=== PATIENT | female | born 1980 | race Caucasian/White ===

== ENCOUNTER 2020-02-09 08:33 | Outpatient (CLI) | payer OTHER, SELFPAY ==
--- NOTE | ~2020-02-09 | MM_ITS ---
EXAMINATION: MM screening germaine BI w lala HISTORY: Screening mammogram TECHNIQUE: Craniocaudal and mediolateral oblique 3-D tomosynthesis images were obtained and synthetic 2-D images were generated. CAD analysis was submitted and interpreted. COMPARISON: 01/19/2019, 12/29/2017 bilateral digital screening mammogram examinations o BREAST PARENCHYMAL COMPOSITION: There are scattered areas of fibroglandular density. FINDINGS: There is no evidence of suspicious mass, calcification, or architectural distortion to sugg est malignancy in either breast. There has been no suspicious interval change. IMPRESSION: 1. No mammographic evidence of malignancy. 2. Recommend routine screening mammography in one year. BI-RADS Category 1: Negative Reviewed, dictated and finalized at location A. LOGY TECHNICIAN
== END 2020-02-09 08:34 | disposition home or self-care (01) ==
LOC: ANHIMG 08:35
PROVIDERS: PCP Nurse Practitioner Family; Visit Provider Nurse Practitioner Family
DX: Z12.31 Encounter for screening mammogram for malignant neoplasm of breast (principal)
CPT/HCPCS: 77063; 77067

== ENCOUNTER 2020-12-25 18:14 | Emergency (ER) | payer OTHER, SELFPAY ==
--- NOTE | ~2020-12-25 | XR_ITS ---
EXAMINATION: XR ankle RT min 3V DATE: 12/25/2020 18:34 INDICATION: Right ankle injury and pain. TECHNIQUE: 4 views of right ankle were obtained. COMPARISON: None. FINDINGS: Bone alignment is normal. No fracture. Joint spaces are well maintained. IMPRESSION: 1. No fracture. Reviewed, dictated and finalized at location A. IMPRESSION: 1. No fracture.
[2020-12-25 18:38] VITALS: BP 123/83; PULSE 70; RESP 18; TEMP 37.3; O2SAT 100
--- NOTE | 2020-12-25 18:55 | ED.LOWEXIN ---
HPI - Extremity Injury (Lower) General Chief Complaint: Extremity Injury, Lower Stated Complaint: Rt ankle pain Time Seen by Provider: 12/25/20 18:46 Source: patient and RN notes reviewed Mode of arrival: ambulatory Limitations: no limitations History of Present Illness HPI Narrative: Patient presents today complaining of pain and swelling to the right ankle after she fell and twisted her ankle 1 week ago. She does report some numbness to the lateral malleolus area since the injury. She currently rates her pain 4/10 and has been elevating the ankle and applying ice once. She has tried no medication for symptoms prior to arrival. She has been continuing to work and going to the gym, and states that she knows that when she continues to work it does make the swelling and pain worse. MD complaint: ankle injury Related Data Home Medications Medication Instructions Recorded Confirmed hydroxyzine HCl 25 mg PO DAILY 12/25/20 12/25/20 sertraline 100 mg PO DAILY 12/25/20 12/25/20 zolpidem 10 mg PO HS 12/25/20 12/25/20 Allergies Allergy/AdvReac Type Severity Reaction Status Date / Time oxycodone AdvReac Severe vomiting Verified 12/25/20 18:40 Review of Systems Review of Systems: CONSTITUTIONAL: Denies body aches, fever, chills, or sweats. EYES: Denies visual changes, redness, or discharge. ENT: Denies rhinorrhea, congestion, sore throat, or otalgia. CARDIOVASCULAR: Denies chest pain, palpitations, or edema. RESPIRATORY: Denies cough or dyspnea. GASTROINTESTINAL: Denies abdominal pain, nausea, vomiting, or diarrhea. GENITOURINARY: Denies dysuria or hematuria. SKIN: Denies rash, itching, or wounds. MUSCULOSKELETAL: Denies back pain, or myalgia.+ Right ankle injury NEUROLOGIC: Denies headache, tingling, or weakness.+ Numbness to the right lateral ankle PSYCH: Denies depression or anxiety. PMFSH Comments At time of signature, I have reviewed and agree with nursing past medical, surgical, social and family history unless otherwise noted. Please see nursing chart for further information. There is no relevant family history pertinent to the presenting complaint Exam Narrative: GENERAL: Well-appearing, well-nourished, and in no acute distress. HEAD: Normocephalic, atraumatic. EYES: EOMI. No redness or drainage. Conjunctivae normal. ENT: Mucous membranes pink and moist. NECK: Normal AROM. CHEST: No respiratory distress. EXTREMITIES: Right ankle: Mild swelling to the lateral malleolus, extending slightly distally with some healing ecchymosis. Tenderness to these areas. No tenderness medially or posteriorly. Distal sensation intact. Capillary refill normal. Pedal pulse normal. Patient does have sensation to the lateral malleolus. No pain with PROM of the ankle. SKIN: Warm, dry, no rash. Capillary refill normal. Normal skin turgor. NEURO: No focal deficits. Alert and oriented x3. Gait steady. PSYCH: Normal affect. No signs of depression or anxiety. Course Vital Signs Vital signs: Vital Signs Temperature 99.1 F 12/25/20 18:38 Pulse Rate 70 12/25/20 18:38 Respiratory Rate 18 12/25/20 18:38 Blood Pressure 123/83 12/25/20 18:38 Pulse Oximetry 100 12/25/20 18:38 Temperature 99.1 F 12/25/20 18:38 Pulse Rate 70 12/25/20 18:38 Respiratory Rate 18 12/25/20 18:38 Blood Pressure 123/83 12/25/20 18:38 Pulse Oximetry 100 12/25/20 18:38 Reviewed. Pt has been instructed to follow up with her PCP regarding her elevated blood pressure today. MDM - Extremity Injury (Lower) Differential Diagnosis Differential diagnosis: Likely ankle sprain and strain, ankle fracture and other (Contusion, foot fracture, foot sprain) Imaging Data Radiologist's impression: ITS Impressions Ankle X-Ray 12/25/20 18:36 IMPRESSION: 1. No fracture. Critical Care Time Critical Care Time Critical Care Time: No Discharge Plan Discharge Clinical Impression: Right ankle sprain Qualifiers: E
== END 2020-12-25 19:03 | disposition home or self-care (01) ==
PROVIDERS: Emergency Provider Nurse Practitioner; PCP Nurse Practitioner Family
DX: S93.401A Sprain of unspecified ligament of right ankle, initial encounter (principal); X50.9XXA Other and unspecified overexertion or strenuous movements or postures, initial encounter; F41.9 Anxiety disorder, unspecified
CPT/HCPCS: 73610; 99213; G0463

== ENCOUNTER 2021-04-08 15:29 | Outpatient (CLI) | payer OTHER, SELFPAY ==
--- NOTE | ~2021-04-08 | MM_ITS ---
EXAMINATION: MM screening germaine BI w lala HISTORY: Screening mammogram, family history of breast cancer in her mother. TECHNIQUE: Craniocaudal and mediolateral oblique 3-D tomosynthesis images were obtained and synthetic 2-D images were generated. CAD analysis was submitted and interpreted. COMPARISON: 02/09/2020, 01/19/2019, 12/29/2017 BREAST PARENCHYMAL COMPOSITION: There are scattered areas of fibroglandular density. FINDINGS: There is no evidence of suspicious mass, calcification, or architectural distortion to sugg est malignancy in either breast. There has been no suspicious interval change. IMPRESSION: 1. No mammographic evidence of malignancy. 2. Recommend routine screening mammography in one year. BI-RADS Category 1: Negative Reviewed, dictated and finalized at location A. ENDER
== END 2021-04-08 15:30 | disposition home or self-care (01) ==
PROVIDERS: PCP Nurse Practitioner Family; Visit Provider Obstetrics & Gynecology Gynecology
DX: Z12.31 Encounter for screening mammogram for malignant neoplasm of breast (principal)
CPT/HCPCS: 77063; 77067

== ENCOUNTER 2021-11-19 19:09 | Emergency (ER) | payer OTHER, SELFPAY ==
[2021-11-19 20:00] VITALS: BP 117/82; PULSE 73; RESP 18; TEMP 36.9; O2SAT 98
--- NOTE | 2021-11-19 20:11 | ED.URI ---
HPI - URI/Sore Throat General Chief Complaint: Upper Respiratory Infection Stated Complaint: sorethroat Time Seen by Provider: 11/19/21 20:11 Source: patient and RN notes reviewed Mode of arrival: ambulatory Limitations: no limitations History of Present Illness HPI Narrative: 41-year-old female presented for complaint of sore throat since yesterday. Endorses yesterday also having headache, fevers and chills, and cough. Endorses waking today with a hoarse voice. She endorses exposure to sick child but unsure what they had. She is taking [place] and NyQuil for symptoms. She tested negative for COVID at home today. Denies shortness of breath, wheezing, vomiting. MD elicited complaint: cough Related Data Home Medications Medication Instructions Recorded Confirmed hydroxyzine HCl 25 mg tablet 25 mg TID 11/19/21 11/19/21 sertraline 100 mg tablet 100 mg DAILY 11/19/21 11/19/21 zolpidem 10 mg tablet 10 mg HS 11/19/21 11/19/21 Allergies Allergy/AdvReac Type Severity Reaction Status Date / Time oxycodone AdvReac Severe vomiting Verified 11/19/21 20:22 Review of Systems Review of Systems: EYES: Denies visual changes, redness, or discharge ENT: Reports rhinorrhea, congestion, sore throat CARDIOVASCULAR: Denies chest pain, palpitations, edema RESPIRATORY: Reports cough, post nasal drainage. Denies dyspnea GASTROINTESTINAL: Denies abdominal pain, nausea, vomiting, diarrhea SKIN: Denies rash or itching MUSCULOSKELETAL: denies myalgia NEUROLOGIC: Denies headache Exam Narrative: GENERAL: Ill-appearing, nontoxic EYES: conjunctivae clear ENT: Mucous membranes moist. TMs pearly [place] with dull light reflex bilaterally; no tragal tenderness. Oropharynx erythematous without lesions or exudate, voice is hoarse; no drooling, no trismus, uvula midline. No tripod positioning, muffled voice, soft palate or pharyngeal wall bulging CHEST: Clear to auscultation, breath sounds equal. HEART: Regular rate and rhythm. SKIN: Warm, dry, no rash. NEURO: Alert and oriented x3. PSYCH: Normal mood and affect Course Course Emergency Course: Patient is aware of diagnosis, understands and agrees to treatment plan. Anticipatory guidance given. Patient agrees to follow-up as directed and is aware of reasons to seek care at the emergency department. Portions of this record may have been created with voice recognition software Level of Care: Express Care Visit Vital Signs Vital signs: Vital Signs Temperature 98.5 F 11/19/21 20:00 Pulse Rate 73 11/19/21 20:00 Respiratory Rate 18 11/19/21 20:00 Blood Pressure 117/82 11/19/21 20:00 Pulse Oximetry 98 11/19/21 20:00 Oxygen Delivery Room Air 11/19/21 20:00 Temperature 98.5 F 11/19/21 20:00 Pulse Rate 73 11/19/21 20:00 Respiratory Rate 18 11/19/21 20:00 Blood Pressure 117/82 11/19/21 20:00 Pulse Oximetry 98 11/19/21 20:00 Oxygen Delivery Room Air 11/19/21 20:00 reviewed MDM - URI/Sore Throat MDM Narrative Medical decision making narrative: Negative strep reviewed with patient. Advised supportive measures and signs/symptoms to go to the ER. Pt is appropriate for outpt treatment and f/u. Differential Diagnosis Differential diagnosis: Likely upper respiratory infection, sinusitis and viral infection Lab Data Labs: Strep Screen Presumptive Negative *(Reference Range: Negative)* Discharge Plan Discharge Clinical Impression: Upper respiratory infection Patient Disposition: Home, Self-Care Condition: Stable Instructions: Pharyngitis (ED) Additional Instructions: Rapid strep swab was negative today You will be notified in a few days if the culture comes back positive for strep, and appropriate antibiotics will be called in at that time. if symptoms are due to a viral illness, it is not treated with antibiotics. Viral symptoms can be present for up to 10-14 days. Cong
== END 2021-11-19 20:41 | disposition home or self-care (01) ==
PROVIDERS: Emergency Provider Nurse Practitioner Family; PCP Nurse Practitioner Family
DX: J06.9 Acute upper respiratory infection, unspecified (principal)
CPT/HCPCS: 87081; 87880; 99213; G0463

== ENCOUNTER 2022-01-26 12:41 | Emergency (ER) | payer OTHER, SELFPAY ==
--- NOTE | ~2022-01-26 | XR_ITS ---
EXAMINATION: XR chest 2V DATE: 01/26/2022 13:19 INDICATION: Productive cough. Congestion. TECHNIQUE: Frontal and lateral views of the chest were obtained. COMPARISON: None. 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 No pleural ef fusion or pneumothorax. The heart size is normal. IMPRESSION: 1. No acute cardiopulmonary disease. Reviewed, dictated and finalized at location A. ATTENDANT
--- NOTE | 2022-01-26 12:54 | ED.URI ---
HPI - URI/Sore Throat General Chief Complaint: Upper Respiratory Infection Stated Complaint: fever,cough Time Seen by Provider: 01/26/22 12:54 Source: patient Mode of arrival: ambulatory Limitations: no limitations History of Present Illness HPI Narrative: William is a 41-year-old female patient presenting to clinic today with complaints of fever, cough, shortness of breath, chills x2 weeks. She reports she went to [place] [facility] 8 days ago and received prednisone, Tamiflu, albuterol inhaler. States that her had flu a so they went ahead and gave her a prescription for Tamiflu and she states that this did not help her symptoms. The albuterol is helping some of the shortness of breath however she feels as though she has pneumonia. She reports that she is coughing up some green phlegm. MD elicited complaint: fever, cough and nasal congestion Related Data Home Medications Medication Instructions Recorded Confirmed hydroxyzine HCl 25 mg tablet 25 mg TID 11/19/21 01/26/22 sertraline 100 mg tablet 100 mg DAILY 11/19/21 01/26/22 zolpidem 10 mg tablet 10 mg HS 11/19/21 01/26/22 Allergies Allergy/AdvReac Type Severity Reaction Status Date / Time oxycodone AdvReac Severe vomiting Verified 01/26/22 13:09 Review of Systems Review of Systems: Pertinent positives per HPI. Patient denies any fever, chills, rash, headache, visual changes, dizziness, chest pain, palpitations, nausea, vomiting, diarrhea, constipation, abdominal pain, or any urinary issues. PMFSH Comments At the time of my signature, I reviewed and agree with the nursing past medical, surgical, social, and family history. There is no relevant family history pertinent to the patient complaint. Exam Narrative: General: Well-developed, well nourished, in no apparent distress Head: Normocephalic, atraumatic Eyes: Pupils equally round and reactive to light bilaterally, EOM intact, sclera and conjunctive clear, no discharge, lids normal Ears: TMs intact and dull, ear canals clear, no drainage, grossly hearing normal. Nose: Nares patent, green nasal discharge, severe inflammation, maxillary and frontal sinus tenderness. Mouth: Oral pharynx without lesions or masses, good dentition, MMM. Postnasal drip Neck: Supple, trachea midline, no enlargement of anterior or posterior cervical nodes, no thyroid masses or goiter palpable. Cardio: Regular rate and rhythm, s1 and s2 normal, no murmur appreciated. Resp: Clear to auscultation bilaterally, no rhonchi, rales, wheezing or rubs Course Course Emergency Course: Portions of this record may have been created with voice recognition software. Level of Care: Express Care Visit Vital Signs Vital signs: Vital Signs Temperature 36.6 C 01/26/22 13:00 Pulse Rate 83 01/26/22 13:00 Respiratory Rate 18 01/26/22 13:00 Blood Pressure 133/99 H 01/26/22 13:00 Pulse Oximetry 98 01/26/22 13:00 Oxygen Delivery Room Air 01/26/22 13:00 Temperature 36.6 C 01/26/22 13:00 Pulse Rate 83 01/26/22 13:00 Respiratory Rate 18 01/26/22 13:00 Blood Pressure 133/99 H 01/26/22 13:00 Pulse Oximetry 98 01/26/22 13:00 Oxygen Delivery Room Air 01/26/22 13:00 Vital signs reviewed MDM - URI/Sore Throat MDM Narrative Medical decision making narrative: At the time of visit patient is resting comfortably on exam table. Chest x-ray was performed and patient was negative for any sign of pneumonia. I suspect patient has acute bacterial rhinosinusitis which with a prescription of Augmentin and prednisone. Supportive measures were discussed with the patient and she voiced understanding of discharge instructions and agrees to treatment plan Differential Diagnosis Differential diagnosis: Likely upper respiratory infection, otitis media, sinusitis, viral infection, bronchitis, influenza, pharyngitis and other (COVID) Discharge Plan Discharge Clinical Impression: Acute bacterial rhinosinusitis Patient
[2022-01-26 13:00] VITALS: BP 133/99; PULSE 83; RESP 18; TEMP 36.6; O2SAT 98
== END 2022-01-26 13:27 | disposition home or self-care (01) ==
PROVIDERS: Emergency Provider Nurse Practitioner Family; PCP Nurse Practitioner Family
DX: J01.90 Acute sinusitis, unspecified (principal); F41.9 Anxiety disorder, unspecified
CPT/HCPCS: 71046; 99213; G0463

== ENCOUNTER 2022-05-25 11:53 | Emergency (ER) | payer OTHER, SELFPAY ==
[2022-05-25 12:07] VITALS: BP 125/82; PULSE 65; RESP 16; TEMP 36.5; O2SAT 98
--- NOTE | 2022-05-25 12:46 | ED.URI ---
HPI - URI/Sore Throat General Chief Complaint: Upper Respiratory Infection Stated Complaint: sorethroat,cough Source: patient Mode of arrival: ambulatory Limitations: no limitations History of Present Illness HPI Narrative: 41-year-old female presents to [facility] complains of body aches, chills, cough, sore throat, nasal congestion and sinus pressure for the past 3-4 days. Patient reports that her daughter recently had similar symptoms. Patient has been taking Claritin, Flonase, DayQuil and ibuprofen with minimal relief. Patient denies recent travel. Patient has shortness of breath, wheezing, nausea, vomiting or diarrhea. MD elicited complaint: sore throat, rhinorrhea, nasal congestion and sinus pain Onset (ago): day(s) (3) Able to tolerate fluids by mouth: Yes Context: sick contacts Treatments prior to arrival: acetaminophen, ibuprofen and cold medicine Related Data Home Medications Medication Instructions Recorded Confirmed hydroxyzine HCl 25 mg tablet 25 mg TID 11/19/21 05/25/22 sertraline 100 mg tablet 100 mg DAILY 11/19/21 05/25/22 zolpidem 10 mg tablet 10 mg HS 11/19/21 05/25/22 Allergies Allergy/AdvReac Type Severity Reaction Status Date / Time oxycodone AdvReac Severe vomiting Verified 05/25/22 12:08 Review of Systems Constitutional: Constitutional: Reports chills, Reports fatigue, Denies fever(s) and Denies weakness ENT: Denies vertigo, Denies dizziness, Reports nasal congestion and Reports sore throat Comments: Sinus pressure Cardiovascular: Cardiovascular: Denies chest pain Respiratory: Respiratory: Denies chest congestion, Reports cough, Denies dyspnea and Denies wheezing Gastrointestinal: Gastrointestinal: Denies diarrhea, Denies nausea and Denies vomiting Integumentary/Breasts: Skin/Breast: Denies rash Neurologic: Denies dizziness, Denies syncope and Denies headache(s) PMFSH Comments At time of signature, I agree with nursing past medical, surgical, social and family history. There is no relevant family history pertinent to the presenting complaint. Exam Const: General: healthy appearing and no acute distress Nutritional Appearance: well nourished Orientation/consciousness: patient oriented x3 Limitations: no limitations HENMT: Head: normal to inspection Ears: external ears normal, TM's normal bilaterally and EAC's normal Face/Nose/Sinus: Normal external nose present Face and sinus: sinus tenderness frontal Mouth: Yes Normal oral and palatal mucosa present, Yes lip normal and Yes moist mucous membranes Teeth and gingiva: dentition normal Throat: posterior oropharynx normal and uvula midline Other: Moderate nasal congestion noted, right is worse than left Eyes: Conjunctivae: conjunctivae normal Resp: Effort & Inspection: normal respiratory effort, not labored and not tachypneic Auscultation: clear to auscultation bilaterally, no crackles, no rales, no rhonchi and no wheezes Cardio: Rate: regular rate Rhythm: regular rhythm Heart sounds: no murmurs Skin: General skin exam: normal color Rashes: no rashes Wounds: no wounds Neuro: General: patient oriented x3 Speech: normal speech Gait exam (Neuro): Normal gait present Psych: Affect: normal affect Attitude: cooperative Course Course Level of Care: Express Care Visit Vital Signs Vital signs: Vital Signs Temperature 36.5 C 05/25/22 12:07 Pulse Rate 65 05/25/22 12:07 Respiratory Rate 16 05/25/22 12:07 Blood Pressure 125/82 05/25/22 12:07 Pulse Oximetry 98 05/25/22 12:07 Oxygen Delivery Room Air 05/25/22 12:07 Temperature 36.5 C 05/25/22 12:07 Pulse Rate 65 05/25/22 12:07 Respiratory Rate 16 05/25/22 12:07 Blood Pressure 125/82 05/25/22 12:07 Pulse Oximetry 98 05/25/22 12:07 Oxygen Delivery Room Air 05/25/22 12:07 MDM - URI/Sore Throat MDM Narrative Medical decision making narrative: Discussed negative lab results with patient. Instructed patient to continue Cl
== END 2022-05-25 12:52 | disposition home or self-care (01) ==
PROVIDERS: Emergency Provider Nurse Practitioner Family; PCP Nurse Practitioner Family
DX: B34.9 Viral infection, unspecified (principal); Z20.822 Contact with and (suspected) exposure to COVID-19; F41.9 Anxiety disorder, unspecified
CPT/HCPCS: 87081; 87426; 87804; 87880; 99213; C9803; G0463

== ENCOUNTER 2022-05-29 08:27 | Outpatient (CLI) | payer OTHER, SELFPAY ==
--- NOTE | ~2022-05-29 | MM_ITS ---
EXAMINATION: MM screening germaine BI w lala HISTORY: Screening mammogram TECHNIQUE: Craniocaudal and mediolateral oblique 3-D tomosynthesis images were obtained and synthetic 2-D images were generated. CAD analysis was submitted and interpreted. COMPARISON: 04/08/2021, 02/09/2020, 01/19/2019 bilateral screening mammogram examinations BREAST PARENCHYMAL COMPOSITION: The breasts are heterogeneously dense, which may obscure small masses . FINDINGS: There is no evidence of suspicious mass, calcification, or architectural distortion to sugg est malignancy in either breast. There has been no suspicious interval change. IMPRESSION: 1. No mammographic evidence of malignancy. 2. Recommend routine screening mammography in one year. BI-RADS Category 1: Negative Reviewed, dictated and finalized at location A.
== END 2022-05-29 08:28 | disposition home or self-care (01) ==
LOC: ANHIMG 08:30
PROVIDERS: PCP Nurse Practitioner Family; Visit Provider Obstetrics & Gynecology Gynecology
DX: Z12.31 Encounter for screening mammogram for malignant neoplasm of breast (principal)
CPT/HCPCS: 77063; 77067

== ENCOUNTER 2022-06-01 16:29 | Emergency (ER) | payer OTHER, SELFPAY ==
--- NOTE | ~2022-06-01 | XR_ITS ---
EXAMINATION: XR chest 2V Exam Date/Time: 06/01/2022 17:38 CDT HISTORY: cough wheeze Comparison: 01/26/2022. RESULT: Lines, tubes, and devices: None. Lungs and pleura: Clear. Cardiomediastinal silhouette: Stable. Other: No acute osseous or upper abdominal finding. IMPRESSION: No acute cardiopulmonary process. Reviewed, dictated and finalized at location K.
[2022-06-01 16:41] VITALS: BP 100/80; PULSE 70; RESP 18; TEMP 37.6; O2SAT 96
--- NOTE | 2022-06-01 17:40 | ED.URI ---
HPI - URI/Sore Throat General Chief Complaint: Upper Respiratory Infection Stated Complaint: Congestion,Sinus Source: patient Mode of arrival: ambulatory Limitations: no limitations History of Present Illness HPI Narrative: 41-year-old female presents to [facility] with complaints of sinus pressure, productive cough, runny nose, congestion, body aches for the past 10-14 days. Patient was evaluated here 7 days ago, diagnosed with viral illness and was prescribed Medrol Dosepak and Tessalon at that time. Patient reports that she has a history of sinus infections. Patient does take Flonase and Claritin daily. MD elicited complaint: cough, rhinorrhea, nasal congestion and sinus pain Onset (ago): week(s) (1.5) Able to tolerate fluids by mouth: Yes Exacerbating factors: nothing Relieving factors: nothing Treatments prior to arrival: acetaminophen, ibuprofen and cold medicine Related Data Home Medications Medication Instructions Recorded Confirmed hydroxyzine HCl 25 mg tablet 25 mg TID 11/19/21 06/01/22 sertraline 100 mg tablet 100 mg DAILY 11/19/21 06/01/22 zolpidem 10 mg tablet 10 mg HS 11/19/21 06/01/22 Allergies Allergy/AdvReac Type Severity Reaction Status Date / Time oxycodone AdvReac Severe vomiting Verified 05/25/22 12:08 Review of Systems Constitutional: Constitutional: Denies chills, Denies fatigue, Denies fever(s) and Denies weakness ENT: Denies vertigo, Denies dizziness, Denies epistaxis, Reports nasal congestion and Reports sore throat Comments: Sinus pressure Respiratory: Respiratory: Denies chest congestion, Reports cough, Denies dyspnea and Reports wheezing Gastrointestinal: Gastrointestinal: Denies diarrhea, Denies nausea and Denies vomiting Integumentary/Breasts: Skin/Breast: Denies rash Neurologic: Denies dizziness, Denies syncope and Denies headache(s) PMFSH Comments At time of signature, I agree with nursing past medical, surgical, social and family history. There is no relevant family history pertinent to the presenting complaint. Exam Const: General: healthy appearing and no acute distress Nutritional Appearance: well nourished Orientation/consciousness: patient oriented x3 Limitations: no limitations HENMT: Head: normal to inspection Ears: external ears normal, TM's normal bilaterally and EAC's normal Face/Nose/Sinus: Normal external nose present Face and sinus: sinus tenderness frontal Mouth: Yes Normal oral and palatal mucosa present and Yes moist mucous membranes Throat: posterior oropharynx normal and uvula midline Other: Mild frontal sinus pressure noted with moderate amount of nasal congestion noted Eyes: Conjunctivae: conjunctivae normal Neck: Neck: normal visual inspection Resp: Effort & Inspection: normal respiratory effort and not labored Auscultation: clear to auscultation bilaterally, no crackles, no rales, no rhonchi and wheezes scattered wheezes and throughout Cardio: Rate: regular rate Rhythm: regular rhythm Heart sounds: no murmurs Skin: General skin exam: normal color Rashes: no rashes Neuro: General: patient oriented x3 Speech: normal speech Gait exam (Neuro): Normal gait present Psych: Affect: normal affect Attitude: cooperative Course Course Level of Care: Express Care Visit Vital Signs Vital signs: Vital Signs Temperature 37.6 C 06/01/22 16:41 Pulse Rate 70 06/01/22 16:41 Respiratory Rate 18 06/01/22 16:41 Blood Pressure 100/80 06/01/22 16:41 Pulse Oximetry 96 06/01/22 16:41 Oxygen Delivery Room Air 06/01/22 16:41 Temperature 37.6 C 06/01/22 16:41 Pulse Rate 70 06/01/22 16:41 Respiratory Rate 18 06/01/22 16:41 Blood Pressure 100/80 06/01/22 16:41 Pulse Oximetry 96 06/01/22 16:41 Oxygen Delivery Room Air 06/01/22 16:41 MDM - URI/Sore Throat MDM Narrative Medical decision making narrative: Instructed patient to take antibiotic and to use inhaler as prescribed. Instructed patient to fol
== END 2022-06-01 18:11 | disposition home or self-care (01) ==
PROVIDERS: Emergency Provider Nurse Practitioner Family; PCP Nurse Practitioner Family
DX: J32.9 Chronic sinusitis, unspecified (principal); J40 Bronchitis, not specified as acute or chronic
CPT/HCPCS: 71046; 99213; G0463

== ENCOUNTER 2023-05-14 09:31 | Outpatient (CLI) | payer OTHER, SELFPAY ==
--- NOTE | ~2023-05-14 | XR_ITS ---
AP view of the pelvis and AP and lateral views of the bilateral hips Clinical history: Pain Findings: No acute fracture or dislocation is seen. Osseous alignment is anatomic. Bilateral hip and SI joint spaces are preserved. Soft tissues are unremarkable. Impression: No significant abnormality is seen. Reviewed, dictated and finalized at [facility]. WOOD CUTTER Impression: No significant abnormality is seen.
== END 2023-05-14 09:32 ==
PROVIDERS: PCP Family Medicine; Visit Provider Family Medicine
DX: M25.551 Pain in right hip (principal)
CPT/HCPCS: 73521

== ENCOUNTER 2023-08-11 09:12 | Outpatient (CLI) | payer OTHER, SELFPAY ==
--- NOTE | ~2023-08-11 | XR_ITS ---
EXAMINATION: XR fl inj hip RT for MR/CT DATE: 08/11/2023 14:39 INDICATION: Right hip pain. No prior surgery. TECHNIQUE: A time-out was performed to verify the patient's name, date of , and procedure to b e performed. The procedure including the risks, benefits, and alternatives was discussed with the pat ient. Risks discussed included bleeding and infection. The patient understood the risks and agreed to proceed. The skin overlying the right hip joint was prepped and draped in usual sterile fashion. An esthetic was administered with 1% lidocaine subcutaneously. A 22 G needle was advanced under fluoros copic guidance into the joint. Subsequently, injectate consisting of 9 mL of 1:200 Multihance, 1:4 1 % lidocaine, and 1:4 Omnipaque 240 was instilled. The needle was removed and the entry site was tara steve and dressed. There were no immediate complications. Fluoroscopy exposure time was 0.1 minutes. T he total number of images was 3. FINDINGS: Real-time fluoroscopy demonstrates the needle and contrast in the right hip joint. IMPRESSION: 1. Successful right hip joint injection of contrast for subsequent MR arthrography. Reviewed, dictated and finalized at location A. IMPRESSION: 1. Successful right hip joint injection of contrast for subsequent MR arthrogra phy.
--- NOTE | ~2023-08-11 | MR_ITS ---
MR arthrogram of the right hip CLINICAL HISTORY: Right hip pain TECHNIQUE: Following intra-articular injection of dilute gadolinium, axial T1-weighted, and T1 fat-sa t, and T2 fat-sat images, and coronal proton-density and T2 fat-sat images of the pelvis were perform ed. Small [id number] T1 fat-sat imaging of the right hip joint was performed in the axial, coronal , and sagittal planes. FINDINGS: No evidence for fracture or avascular necrosis of either hip. Bone marrow signals of the pr oximal femora and pelvic bones are unremarkable. Possible tiny anterior right acetabular labral tear delineated by contrast seen on a single small [id number] sagittal image. Remainder of the labrum a ppears intact. Possible minimal chondral thinning of the hip joints, but no high-grade degenerative c hange present. Visual is musculature about the pelvis and right hip is unremarkable. No muscle atrophy or edema seen . Visualized tendons are intact. No bursitis. No soft tissue mass or fluid collection seen. IMPRESSION: Suspected focal tiny tear of the anterior right acetabular labrum, as detailed above. Reviewed, dictated and finalized at location M.
== END 2023-08-11 09:13 ==
PROVIDERS: PCP Internal Medicine
DX: M25.551 Pain in right hip (principal)
CPT/HCPCS: 20610; 73722; 77002; A9577; Q9967

== ENCOUNTER 2024-05-11 09:04 | Emergency (ER) | payer OTHER, SELFPAY ==
[2024-05-11 09:16] VITALS: BP 126/79; PULSE 69; RESP 18; TEMP 36.4; O2SAT 100
--- NOTE | 2024-05-11 09:31 | ED.URI ---
HPI - URI/Sore Throat General Chief Complaint: Upper Respiratory Infection Stated Complaint: Scratchy throat, Congestion, Headache Time Seen by Provider: 05/11/24 09:20 Source: patient Mode of arrival: ambulatory Limitations: no limitations History of Present Illness HPI Narrative: Charles is a 43-year-old female patient presenting to the clinic today with complaints of headache, nasal congestion, and scratchy throat x1 day. Reports her symptoms started last night. tested positive for COVID yesterday. She denies any fevers, chills, or body aches. She denies any shortness of breath chest pain. MD elicited complaint: sore throat and nasal congestion Related Data Home Medications ?Medication ?Instructions ?Recorded ?Confirmed ?Last Taken ?Type hydroxyzine HCl 25 mg tablet 25 mg TID 11/19/21 06/01/22 Unknown History sertraline 100 mg tablet 100 mg DAILY 11/19/21 06/01/22 Unknown History zolpidem 10 mg tablet 10 mg HS 11/19/21 06/01/22 Unknown History Allergies Allergy/AdvReac Type Severity Reaction Status Date / Time oxycodone AdvReac Severe vomiting Verified 05/11/24 09:22 Review of Systems Review of Systems: Pertinent positives per HPI. Patient denies any fever, chills, rash, visual changes, dizziness, shortness of breath, chest pain, palpitations, nausea, vomiting, diarrhea, constipation, abdominal pain, or any urinary issues. PMFSH Comments At the time of my signature, I reviewed and agree with the nursing past medical, surgical, social, and family history. There is no relevant family history pertinent to the patient complaint. Exam Narrative: General: Well-developed, well nourished, in no apparent distress Head: Normocephalic, atraumatic Eyes: Pupils equally round and reactive to light bilaterally, EOM intact, sclera and conjunctive clear, no discharge, lids normal Ears: TMs intact and clear, ear canals clear, no drainage, grossly hearing normal. Nose: Nares patent, clear nasal discharge, no inflammation, no sinus tenderness. Mouth: Oral pharynx without lesions or masses, good dentition, MMM. Neck: Supple, trachea midline, no enlargement of anterior or posterior cervical nodes, no thyroid masses or goiter palpable. Cardio: Regular rate and rhythm, s1 and s2 normal, no murmur appreciated. Resp: Clear to auscultation bilaterally, no rhonchi, rales, wheezing or rubs Course Course Emergency Course: Portions of this record may have been created with voice recognition software. Level of Care: Express Care Visit Vital Signs Vital signs: Vital Signs Temperature 36.4 C 05/11/24 09:16 Pulse Rate 69 05/11/24 09:16 Respiratory Rate 18 05/11/24 09:16 Blood Pressure 126/79 05/11/24 09:16 Pulse Oximetry 100 05/11/24 09:16 Oxygen Delivery Room Air 05/11/24 09:16 Temperature 36.4 C 05/11/24 09:16 Pulse Rate 69 05/11/24 09:16 Respiratory Rate 18 05/11/24 09:16 Blood Pressure 126/79 05/11/24 09:16 Pulse Oximetry 100 05/11/24 09:16 Oxygen Delivery Room Air 05/11/24 09:16 Vital signs reviewed MDM - URI/Sore Throat MDM Narrative Medical decision making narrative: At the time of visit patient is resting comfortably on the exam table. Patient appears to be nontoxic. Labs: COVID testing was positive in the clinic today. Influenza testing was negative. Plan: Patient has COVID. Supportive measures were discussed with the patient and they voiced understanding discharge instructions and agrees to treatment plan. Return precautions reviewed Differential Diagnosis Differential diagnosis: Likely upper respiratory infection, otitis media, sinusitis, viral infection, bronchitis, influenza, pharyngitis and other (Covid) Discharge Plan Discharge Clinical Impression: COVID-19 Patient Disposition: Home, Self-Care Condition: Stable Instructions: Antibiotic Form, How to Recover from COVID-19 at Home (ED) Additional Instructions: COVID testing was positive in the clinic today. Influenza testing was negative. May request having Paxlovid prescribed by your medical provider as discussed. May take DayQuil/NyQuil for cold/flu symptoms Increase fluids and stay well hydrated Tylenol/motrin for pain/fever Flonase and OTC antihistamines as directed Vicks vapor rub to open sinuses Sinus rinses for congestion Cepacol spray, cough drops, throat lozenges, warm tea with honey/lemon, gargle salt water to soothe throat BRAT diet for diarrhea Clear liquids x 24 hours then advance as tolerated for nausea/vomiting Go to the ED if you develop a worsening in your condition- high fever not controlled by Tylenol or Motrin, dehydration, weakness, lethargy, shortness of breath, or chest pain. Follow up with your PCP in 3-5 days if symptoms persist. Patient Language: Sammarinese Prescriptions: No Action albuterol sulfate 90 mcg/actuation HFA aerosol inhaler 1 inh inhalation QID PRN (Reason: shortness of breath or wheezing) Qty: 6.7 0RF sertraline 100 mg tablet 100 mg DAILY hydroxyzine HCl 25 mg tablet 25 mg TID zolpidem 10 mg tablet 10 mg HS Follow-up/Referrals: Bud,MD Lynette [Primary Care Provider] - Time of Disposition: 09:33 Quality NIHSS Nursing Documentation ED NIHSS nursing documentation: reviewed/agree
[2024-05-11 10:38] LABS: EDCOVIDSCREEN Positive (Negative); EDINFLUASCREEN Negative (Negative); EDINFLUBSCREEN Negative (Negative)
== END 2024-05-11 09:35 | disposition home or self-care (01) ==
PROVIDERS: Emergency Provider Nurse Practitioner Family; PCP Internal Medicine
DX: U07.1 COVID-19 (principal)
CPT/HCPCS: 87426; 87804; 99212; G0463